=== PATIENT | female | born 1995 | race African-American/Black ===

== ENCOUNTER 2021-01-30 05:58 | Emergency (ER) | payer OTHER ==
[~2021-01-30] VITALS: Ht 172.7 cm; Wt 113.0 kg
[2021-01-30] MEDS ORDERED: PSEU30TA88 PO (07:41)
[2021-01-30 07:47] VITALS: BP 122/66
== END 2021-01-30 07:48 | disposition home or self-care (01) ==
LOC: M ED 05:58
DX: J06.9 Acute upper respiratory infection, unspecified (principal)

== ENCOUNTER 2021-03-29 00:32 | Emergency (ER) | payer OTHER ==
[~2021-03-29] VITALS: Ht 175.3 cm; Wt 111.2 kg
[2021-03-29 00:32] VITALS: BP 120/57
[~2021-03-29 00:32] MED LIST: PSEU30TA88 PO
== END 2021-03-29 02:34 | disposition left against medical advice (07) ==
LOC: M ED 00:32
DX: Z53.21 Procedure and treatment not carried out due to patient leaving prior to being seen by health care provider (principal)

== ENCOUNTER 2021-03-30 07:08 | Emergency (ER) | payer OTHER ==
[~2021-03-30] VITALS: Ht 175.3 cm; Wt 110.6 kg
[2021-03-30 11:54] LABS: BASO % 0.7 % (0.0-1.0); EOS % 0.5 % (0.0-3.0); HEMATOCRIT 39.7 % (36.0-47.0); HEMOGLOBIN 13.4 g/dl (12.0-15.5); LYMPH # 1.9 10^3/uL (1.5-5.0); LYMPH % 33.5 % (24.0-44.0); MEAN CORPUSCULAR HEMOGLOBIN 29.3 pg (27.0-33.0); MEAN CORPUSCULAR HGB CONC 33.8 g/dl (32.0-36.5); MEAN CORPUSCULAR VOLUME 86.7 fl (80.0-96.0); MONO # 0.4 10^3/uL (0.0-0.8); NEUTROPHILS # 3.3 10^3/uL (1.5-8.5); NEUTROPHILS % 58.1 % (36.0-66.0); PLATELET COUNT, AUTOMATED 313 10^3/uL (150-450); RED BLOOD COUNT 4.58 10^6/uL (4.00-5.40); WHITE BLOOD COUNT 5.6 10^3/uL (4.0-10.0)
--- NOTE | 2021-03-30 11:59 | REP ---
INDICATION: CHEST PAIN. COMPARISON: None. TECHNIQUE: AP seated FINDINGS: Lungs well inflated without infiltrate, effusion, atelectasis or mass. The heart, mediastinal and hilar contours are normal. The aorta and airway were grossly intact. Bones are unremarkable. Lordotic portable projection limits evaluation of the posterior lower lung zones. No free air under the diaphragm. The visualized bones are intact. IMPRESSION: No acute cardiopulmonary change. <Electronically signed by Pradip Lamar > 03/30/21 [id number]
[2021-03-30 12:06] VITALS: BP 116/59
[2021-03-30 12:17] LABS: ALBUMIN 3.7 GM/DL (3.2-5.2); ALT/SGPT 32 U/L (12-78); BILIRUBIN,DIRECT 0.1 MG/DL (0.0-0.2); BILIRUBIN,TOTAL 0.3 MG/DL (0.2-1.0); BLOOD UREA NITROGEN 11 MG/DL (7-18); CALCIUM LEVEL 9.1 MG/DL (8.5-10.1); CARBON DIOXIDE LEVEL 26 MEQ/L (21-32); CHLORIDE LEVEL 107 MEQ/L (98-107); GLOMERULAR FILTRATION RATE > 60.0 (>60); GLUCOSE, FASTING 89 MG/DL (70-100); POTASSIUM SERUM 4.2 MEQ/L (3.5-5.1); SODIUM LEVEL 137 MEQ/L (136-145); TOTAL PROTEIN 7.8 GM/DL (6.4-8.2)
--- NOTE | 2021-03-30 12:42 | REP ---
INDICATION: POSSIBLE ABCESS EPIGASTRIC REGION. COMPARISON: None. TECHNIQUE: Grayscale imaging with the color and Doppler tracings provided. FINDINGS: In the midline epigastric region a few cm below the the xiphoid, in the region for palpable finding, a complex solid lesion at 1.5 x 1.4 x 1.4 cm. There is predominately hypoechoic with internal echoes throughout and solid appearance does not have any connection to communication to structures a deeper and does not represent herniation bowel. There is a color within this but on pulsed Doppler no pulsed wave flow identified. It is quite superficial in the subcutaneous fat. It does show some increased back wall enhancement. There are no other findings. IMPRESSION: 1. Hypoechoic solid-appearing mass lesion 1.5 x 1.4 cm superficial subcutaneous soft tissues midline in the epigastric region without communication to other structures deeper. This is not an epigastric hernia evident on this study. Color is seen within the lesion suggesting blood flow but pulsed Doppler shows no waveform. Question slow flow versus artifact. Given this appearance, needle or surgical biopsy recommended. This is not the appearance of an abscess. <Electronically signed by Pradip Lamar > 03/30/21 2012
--- NOTE | 2021-03-30 22:11 | ECGEPIP ---
[facility] - ED Test Date: 2021-03-30 Pat Name: ADARSH AGUIRRE Department: Room: - Gender: Female Director Distribution: : 1995 Requested By: SEGUN Martínez PA-C Order Number: [id number] Reading MD: Paula Remy Measurements Intervals [place] Rate: 60 P: 13 MI: 178 QRS: 58 QRSD: 86 T: 25 QT: 416 QTc: 416 Interpretive Statements Normal sinus rhythm No prior Electronically Signed on 03-30-2021 22:11:33 EDT by Paula Remy
--- NOTE | 2021-03-31 10:17 | ED PDOC ---
Post-Departure Follow-Up abdominal us formal report to mary joshua for fu Stefan Quiroz MD Mar 31, 2021 10:17
== END 2021-03-30 13:17 | disposition home or self-care (01) ==
LOC: M ED 07:08
DX: R19.06 Epigastric swelling, mass or lump (principal)